=== PATIENT | female | born 1995 | race Two or more races ===

== ENCOUNTER 2018-01-19 09:18 | Outpatient (CLI) | payer OTHER ==
[~2018-01-19 09:18] MED LIST: ALDACTONE25 MG; ALLEGRA ALLERG180 MG PO; CONCERTA36 MG/BOTT; FLONASE16 GM NS; LEXAPRO5 MG; MAXITROL EYE O3.5 GM OP; ZOLOFT25 MG
== END 2018-01-19 09:43 | disposition home or self-care (01) ==
LOC: LAB 09:18
DX: Z12.11 Encounter for screening for malignant neoplasm of colon (principal); D64.89 Other specified anemias; E03.8 Other specified hypothyroidism; N95.1 Menopausal and female climacteric states; I10 Essential (primary) hypertension; C51.9 Malignant neoplasm of vulva, unspecified; N30.00 Acute cystitis without hematuria; E83.51 Hypocalcemia; A64 Unspecified sexually transmitted disease; N39.0 Urinary tract infection, site not specified; R97.8 Other abnormal tumor markers

== ENCOUNTER 2018-01-19 10:27 | Outpatient (CLI) | payer OTHER | END 2018-01-19 10:36 | disposition home or self-care (01) | LOC: SONOGRAMA 10:27 | DX: R10.2 Pelvic and perineal pain (principal) ==

== ENCOUNTER → 2018-01-21 09:36 | Outpatient (CLI) | payer OTHER | END | disposition home or self-care (01) | LOC: LAB 09:36 | DX: E55.9 Vitamin D deficiency, unspecified (principal); E78.2 Mixed hyperlipidemia ==

== ENCOUNTER 2018-07-20 15:23 | Outpatient (CLI) | payer OTHER | END 2018-07-20 15:33 | disposition home or self-care (01) | LOC: RAD 15:23 | DX: M54.2 Cervicalgia (principal); M62.838 Other muscle spasm ==

== ENCOUNTER 2019-03-06 11:46 | Emergency (ER) | payer OTHER ==
[~2019-03-06] VITALS: Ht 160 cm; Wt 105.7 kg
== END 2019-03-06 16:52 | disposition home or self-care (01) ==
LOC: ER 11:46
DX: R10.11 Right upper quadrant pain (principal); R11.11 Vomiting without nausea

== ENCOUNTER 2020-07-28 12:35 | Outpatient (CLI) | payer OTHER | END 2020-07-28 15:55 | disposition home or self-care (01) | LOC: LAB 12:35 | DX: B35.1 Tinea unguium (principal) ==

== ENCOUNTER 2021-10-06 06:24 | Emergency (ER) | payer OTHER ==
[~2021-10-06] VITALS: Ht 160 cm; Wt 102.1 kg
[2021-10-06] MEDS ORDERED: MELOXICAM15 MG (06:45)
[2021-10-06] MEDS ORDERED: DULOXETINE HCL20 MG (06:45)
== END 2021-10-06 11:48 ==
LOC: ER 06:24
DX: M62.838 Other muscle spasm (principal); M79.641 Pain in right hand; M79.631 Pain in right forearm; M25.521 Pain in right elbow; M25.531 Pain in right wrist; R20.2 Paresthesia of skin

== ENCOUNTER 2022-01-09 10:33 | Outpatient (CLI) | payer OTHER ==
[~2022-01-09 10:33] MED LIST changes: +DULOXETINE HCL20 MG; +MELOXICAM15 MG
== END 2022-01-09 10:34 | disposition home or self-care (01) ==
LOC: LAB 10:33
PROVIDERS: ATTEND Obstetrics & Gynecology
DX: E78.5 Hyperlipidemia, unspecified (principal); E03.9 Hypothyroidism, unspecified; E26.9 Hyperaldosteronism, unspecified; N82.9 Female genital tract fistula, unspecified

== ENCOUNTER 2022-01-22 09:07 | Outpatient (CLI) | payer OTHER | END 2022-01-22 09:19 | disposition home or self-care (01) | LOC: SONOGRAMA 09:07 | PROVIDERS: ATTEND Obstetrics & Gynecology | DX: N92.6 Irregular menstruation, unspecified (principal) ==

== ENCOUNTER 2023-07-14 13:14 | Emergency (ER) | payer OTHER ==
[~2023-07-14] VITALS: Ht 160 cm; Wt 108.9 kg
[2023-07-14 14:02] LABS: HEMATOCRIT 35.7 % (36.0-45.00); HEMOGLOBIN 12.2 g/dL (12.0-15.00); MEAN CELL VOLUME 82.5 fL (80.00-100.00); MEAN CORPUSCULAR HEMOGLOBIN 28.2 pg (27.00-32.0); MEAN CORPUSCULAR HGB CONC 34.2 g/dl (32.0-36.0); PLATELET COUNT 322 K/uL (150-450); RED BLOOD COUNT 4.33 M/uL (4.00-6.00); RED CELL DISTRIBUTION WIDTH 13.8 % (11.5-14.5)
[2023-07-14 14:36] LABS: CREATININE SERUM 0.84 mg/dL (0.55-1.02); GFR 81.96; POTASSIUM 3.58 mEq/L (3.5-5.1)
[2023-07-14 17:52] LABS: PH,URINE 6.5 (5.0-8.0); URINE APPEARANCE Clear; URINE BILIRRUBIN Negative (NEGATIVE); URINE BLOOD Negative; URINE COLOR Yellow; URINE GLUCOSE Negative (NEGATIVE); URINE LEUKOCYTE Negative; URINE NITRATE Negative; URINE PROTEIN Negative (NEGATIVE); URINE UROBILINOGEN 0.2 E.U./dl
[2023-07-14 17:58] LABS: URINE BACTERIA 185.1 uL (0.0-1933); URINE EPITHELIAL CELLS 15.9 uL (0.0-38.8); URINE RBC 8.1 uL (0.0-20.8); URINE WBC 30.2 uL (0.0-23.2)
== END 2023-07-14 19:13 | disposition home or self-care (01) ==
LOC: ER 13:16
PROVIDERS: Emergency Medicine; General Practice
DX: R42 Dizziness and giddiness (principal); R10.9 Unspecified abdominal pain

== ENCOUNTER 2023-08-14 02:15 | Emergency (ER) | payer OTHER ==
[~2023-08-14] VITALS: Ht 160 cm; Wt 111.1 kg
[2023-08-14] MEDS ORDERED: ALBUTEROL SULFATE 3 ML/2.5 MG AMPUL.NEB IH SCH (03:30)
[2023-08-14] MEDS ORDERED: GUAIFENESIN/DEXTROMETHORPHAN 100 MG/5 ML ML PO STA (03:30)
[2023-08-14] MEDS ORDERED: METHYLPREDNISOLONE SOD SUCC 125 MG VIAL IM STA (03:30)
[2023-08-14] MEDS ORDERED: BUDESONIDE0.5 MG/2 M IH (04:57)
[2023-08-14] MEDS ORDERED: ALBUTEROL2.5 MG/3 M IH (04:57)
[2023-08-14] MEDS ORDERED: ZYNCOF 20-400120 ML PO (05:01)
== END 2023-08-14 05:17 ==
LOC: ER 02:16
DX: R05.9 Cough, unspecified (principal)